=== PATIENT | female | born 2000 | race African-American/Black ===

== ENCOUNTER 2019-03-11 14:39 | Emergency (ER) | payer OTHER ==
[~2019-03-11] VITALS: Ht 157.5 cm; Wt 79.4 kg
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
[2019-03-11] MEDS ORDERED: Lidocaine 1% Plain 30 ml INJ ONE (15:00)
[2019-03-11 15:06] VITALS: BP 104/66
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
[2019-03-11] MEDS ORDERED: CEPHALEXIN500 MG ORAL (15:57)
[2019-03-11] MEDS ORDERED: NAPROXEN500 M2 ORAL (15:57)
[2019-03-11 16:10] VITALS: BP 111/71
--- NOTE | 2019-03-11 16:17 | NUR ---
ER DISCHARGE NOTE: Patient is cleared to be discharged per ERMD, pt is aox4, on room air, with stable vital signs. pt was given dc and prescription instructions, pt was able to verbalize understanding, pt id band removed. pt is able to ambulate with steady gait. pt took all belongings.
--- NOTE | 2019-03-12 10:55 | Diagnostic Imaging Report ---
Indication: Right hand pain Technique: 3 views right hand Comparison: none Findings: No acute fractures. No dislocations. The joint spaces are preserved. Impression: No acute process
== END 2019-03-11 16:17 | disposition home or self-care (01) ==
LOC: EMR 15:49
DX: S61.411A Laceration without foreign body of right hand, initial encounter (principal); Z97.5 Presence of (intrauterine) contraceptive device; V19.9XXA Pedal cyclist (driver) (passenger) injured in unspecified traffic accident, initial encounter; Y92.9 Unspecified place or not applicable
CPT/HCPCS: 12001; 73130; 99283; J2001